=== PATIENT | male | born 1940 | race Caucasian/White ===

== ENCOUNTER → 2017-11-27 | Outpatient (CLI) | payer MEDICARE ==
--- NOTE | 2017-11-27 20:54 | PE ---
EXAMINATION TYPE: PET CT fusion skull to thigh DATE OF EXAM: 11/27/2017 COMPARISON: CT chest November 10, 2017 HISTORY: Right lower lobe mass, abnormal chest x-ray and CT. TECHNIQUE: Following the intravenous administration of mCi of F-18 FDG, whole body images are perfor med from the skull base to the midthigh. Images are reviewed on the computer in the coronal, axial, and sagittal planes. Reconstructed rotating images are created on independent workstation and review ed on the computer. A localization and attenuation correction CT is performed in conjunction with t he PET scan. SCAN: Initial Scan FINDINGS: SKULL BASE AND NECK: No suspicious hypermetabolic uptake is present. CHEST, MEDIASTINUM, AND HILAR REGION: There is redemonstration of area of masslike consolidation invo lving the posterior medial aspect right upper lobe just posterior superior to the hilum measuring 3.0 x 3.0 cm on axial image 16 unchanged from prior study. Continuing inferiorly there is more solid com ponent with hypermetabolic uptake abutting the pleura measuring 4.3 x 2.9 cm on axial image 78, max S UV is 10.11 at this level. These may be contiguous in craniocaudal PET images show lobulated contiguo us lesion measuring 6.5 cm long axis. There is abutment of the right sided bronchus intermedius and o cclusion of the right lower lobe bronchus shortly after its origin. Masslike consolidation shows hete rogeneous hypermetabolic uptake. Additional uptake on axial image 87 is noted, max SUV is at this lev el is 7.41. There is subcentimeter focus of hypermetabolic uptake lateral right lung base on axial image 104. Max SUV is 2.93 There is probable subcarinal adenopathy with 1.4 x 0.8 cm lymph node axial image 79, max SUV is 7.84. Left lung is clear. No additional hypermetabolic thoracic lymph nodes are seen. ABDOMEN AND PELVIS: There is slightly suspicious eccentric soft tissue left anterior rectal axial casey ge 200 without hypermetabolic uptake, No suspicious hypermetabolic uptake in abdomen or pelvis is laurie ntified. Advise correlation with direct rectal exam. OSSEOUS STRUCTURES: No suspicious hypermetabolic uptake is seen. Mild increased uptake left glenohume ral joint is presumed postinflammatory. OTHER CT: There is moderate calcified plaque at bilateral carotid bulbs, left greater than right. Dependent gallstone in gallbladder is seen axial image 122. There is large complex cystic lesion right kidney with internal septa and curvilinear calcifications measuring roughly 8.5 x 8.4 cm axial image 138. Craniocaudal dimension is estimated 11 cm. Cystic lee al neoplasm needs to BE considered. Poorly distended bladder seen making evaluation suboptimal. Prostate gland is heterogeneous and promi nent bulging on bladder base, underlying BPH is suspected. Correlate clinically. Normal-appearing appendix is incidentally seen from cecum in the right lower quadrant. There is multilevel facet arthropathy in the lower lumbar spine. There is multilevel spurring in the thoracolumbar spine. IMPRESSION: 1. Suspicious right hilar lobulated lesion or less likely 2 adjacent lesions as detailed above with p ostobstructive atelectasis medial right lower lobe. Suspect subcarinal adenopathy. 2. Large complex cystic lesion left kidney, cystic neoplasm cannot be excluded. Follow-up advised. 3. Attention to left anterior rectal wall axial image 200. Follow-up advised.
== END | disposition home or self-care (01) ==
LOC: RADPETMAIN 07:52
PROVIDERS: ATTEND Internal Medicine
DX: R91.8 Other nonspecific abnormal finding of lung field (principal); N28.1 Cyst of kidney, acquired
CPT/HCPCS: 78815; A9552

== ENCOUNTER 2017-12-02 07:33 | Day surgery (SDC) | payer MEDICARE ==
[2017-12-01 09:00] VITALS: BMI 21.9
[~2017-12-02 07:33] MED LIST: LACTATED RINGERS 1,000 ML IV SCH; LIDOCAINE 1% 20 ML VIAL (10MG/ML) FOR IV START INTRADERMA PRN; Pre Op ABX Message 1 EACH MISC MISCELLANE ONE
[2017-12-02 07:50] VITALS: RESP 16; TEMP 97.6
[2017-12-02] MEDS ORDERED: PROPOFOL 10 MG/ML 20 ML VIAL IV ONE (08:14)
[2017-12-02] MEDS ORDERED: LIDOCAINE 1%-EPI 1:100,000 20 ML VIAL SUBMUCOSAL ONE (08:56)
[2017-12-02] MEDS ORDERED: LIDOCAINE 2% INJ 20 MG/ML INTRATRACH ONE (08:56)
[2017-12-02 09:48] VITALS: BP 118/72; PULSE 83
--- NOTE | 2017-12-02 09:59 | P.PCN ---
Date of Procedure: 12/02/17 Preoperative Diagnosis: Postobstructive right lower lobe pneumonia Postoperative Diagnosis: Right lower lobe superior segment mass with atelectasis Procedure(s) Performed: Bronchoscopy, bronchoalveolar lavage of the right lower lobe, bronchial biopsy of endobronchial mass noted in the superior segment of the right lower lobe, transbronchial biopsy of right lower lobe Anesthesia: other (Conscious sedation by anesthesia) Surgeon: Christiano Nation Estimated Blood Loss (ml): 10 Condition: stable Disposition: same day Indications for Procedure: Lung mass Operative Findings: See below Description of Procedure: Patient prepared and draped in a usual fashion informed consent obtained from the patient explained about side effect alternate event complication, Viroptic bronchoscope was passed through the right nares the vocal cords were normal structure and function tip of the scope was has beyond the vocal cords and trachea was entered tip of the scope was has a left-sided left upper lobe lingular lobe and left lower lobe along with subsegment mike no endobronchial mass or lesion was seen, above the scope was subsequently taken to the right side right upper lobe bronchus normal along with all 3 segments of the right upper lobe bronchus, right middle lobe bronchus noted to be intact, lobe bronchus right at the superior segment 2 lesion there is a lobulated mass was present which was near totally occluding the lumen it was somewhat like lobulated flap-like multiple biopsies BAL and transbronchial biopsies were performed patient tolerated procedure well no complication noted
--- NOTE | 2017-12-02 10:08 | FL ---
EXAMINATION TYPE: FL bronchoscopy DATE OF EXAM: 12/02/2017 CLINICAL HISTORY: Right-sided lung biopsy. TECHNIQUE: Fluoroscopy. COMPARISON: None. FINDINGS: Fluoroscopic guidance was provided during bronchoscopy procedure with biopsy performed by Dr. Nation. A total of 61 seconds of fluoroscopic time was utilized during the procedure and one spot i mages acquired. Intraoperative bronchoscopy image shows advancement of bronchoscope towards right dottie g bronchus. IMPRESSION: As Above.
--- NOTE | 2017-12-02 10:10 | XR ---
EXAMINATION TYPE: XR chest 1V DATE OF EXAM: 12/02/2017 COMPARISON: PET/CT November 27, 2017. Chest CT November 10, 2017. HISTORY: Abnormal CT and PET/CT. Suspicious right lung mass. Right lung bronchoscopy with sampling. TECHNIQUE: Single AP portable frontal upright view of the chest is obtained. FINDINGS: There is persistent right-sided volume loss with mediastinal shift as there is right media l basilar opacity correlates with obstructing hypermetabolic mass and peripheral atelectasis. There m ay be new small right pleural effusion. No sizable pneumothorax is seen. Left lung remains clear. The cardiac silhouette size is within normal limits. Degenerative change both shoulders the glenohumeral joint is redemonstrated. IMPRESSION: No evidence of pneumothorax after right lung bronchoscopy with sampling.
== END 2017-12-02 10:36 | disposition home or self-care (01) ==
LOC: ORWHC2ENDO 07:33
PROVIDERS: ATTEND Internal Medicine Sleep Medicine
DX: R91.8 Other nonspecific abnormal finding of lung field (principal); J98.11 Atelectasis; J18.8 Other pneumonia, unspecified organism; Z79.899 Other long term (current) drug therapy
CPT/HCPCS: 87798 ×4; 87541; 87496; 87498; 87529; 88108; 88305; 87252; 87502; 87634; 87070; 87205; 87116; 87102; 87206; 71045; 31628; 31624; J2001; J2704; 31622; 31625

== ENCOUNTER → 2018-01-13 | Outpatient (CLI) | payer MEDICARE ==
[2018-01-13 13:36] LABS: Blood Urea Nitrogen 26 mg/dL (9-20)
--- NOTE | 2018-01-13 14:51 | CT ---
EXAMINATION TYPE: CT chest w con DATE OF EXAM: 01/13/2018 COMPARISON: 11/10/2017 HISTORY: Lung Mass CT DLP: 374.8 mGycm, Automated exposure control for dose reduction was used. CONTRAST: Performed injected with 100 mL of Omnipaque 300. TECHNIQUE: Axial images were obtained at 5 mm thick sections. Reconstructed images are reviewed on t computer in the coronal plane. FINDINGS: Portion of the thyroid visualized is normal. Some minimal scarring may be at the left apex. Series 4 image 10. This may been present previously. There is a large mass in the azygoesophageal recess. This is estimated to measure 5.2 x 3.8 cm in siz e. This is smaller than the comparison. Some infiltrate or consolidation may be at the posterior lateral right lung base. Underlying mass is not excluded. There is a 0.5 cm nodular density within the posterior right lung base. Series 4 image 48. No enlarged mediastinal or hilar adenopathy is evident. The ascending aorta diameter at the level o f the main pulmonary artery is 3.0 cm. The main pulmonary artery diameter at the bifurcation is 2.[address] sections are obtained through the upper abdomen. Small hiatal hernia is present. There is a tiny hypodensity within the liver with irregular margins of uncertain etiology. Tiny cyst is not ex cluded. Other etiologies are not excluded. This measures 0.8 cm. Series 3 image 50. This area was pre sent previously. Gallstone is present. IMPRESSIONS: 1. Azygoesophageal recess mass. 2. Additional lung findings discussed above. These may be developing from October 2017. EXAMINATION TYPE: CT chest w con, CT abdomen DATE OF EXAM: 01/13/2018 COMPARISON: NONE INDICATION: Lung Mass DLP: 374.8 mGycm, Automated exposure control for dose reduction was used. CONTRAST: 100 mL of Omnipaque 300. Study performed without Oral Contrast TECHNIQUE: Axial images were obtained from above the diaphragm to the pubic rami in the axial plane a t 5 mm thick sections. Reconstructed images are reviewed on the computer in the coronal plane. FINDINGS: CT ABDOMEN: Liver: There is a 0.8 cm hypodensity within the superior right lobe liver, series 3 image 50. Margins are irregular. This could be a tiny cyst. Underlying mass is not excluded. Spleen: Normal Pancreas: Normal Adrenal glands: The adrenal glands are normal. Gallbladder: Gallstone is present. Kidneys: There is a low-density mass on the her pole right kidney measuring 9.3 cm in diameter. Some internal calcification appears to be present. This could be some enhancement. Findings are suspicious for a mass such as renal cell carcinoma. This was incompletely visualized on the 11/10/2017 exam. No hydronephrosis is present. No cysts are present. Delayed images were obtained through the kidneys . Aorta: Vascular calcification is within the aorta. Inferior vena cava: Normal. Loops of bowel within the abdomen and pelvis are normal. Study is without oral contrast limiting bowel loop evaluation. Appendix: Normal as visualized. IMPRESSIONS: 1. Large mixed mass on the inferior pole left kidney. Workup for renal cell carcinoma is recommended .
== END | disposition home or self-care (01) ==
LOC: RADCTMAIN 12:31
PROVIDERS: ATTEND Thoracic Surgery (Cardiothoracic Vascular Surgery)
DX: R91.8 Other nonspecific abnormal finding of lung field (principal)
CPT/HCPCS: 82565; 84520; 71260; 36415; Q9967